=== PATIENT | male | born 1970 | race Caucasian/White ===

== ENCOUNTER 2018-03-14 18:14 | Emergency (ER) | payer BC ==
--- NOTE | 2018-03-14 19:59 | EDM.PDOC ---
ED HPI GENERAL MEDICAL PROBLEM - General Chief Complaint: Lower Extremity Injury/Pain Stated Complaint: LEFT KNEE INJURY Time Seen by Provider: 03/14/18 19:10 Source of Information: Reports: Patient History Limitations: Reports: No Limitations - History of Present Illness INITIAL COMMENTS - FREE TEXT/NARRATIVE: Several days ago this man was running a water obstacle course when he fell off an inflatable beam into the water. When his foot slipped it seemed leke his left lower leg bent outward (abducted) although he didn't see it. He just felt it. Left Knee Pain Score (Numeric/FACES): 3 - Related Data Allergies Allergy/AdvReac Type Severity Reaction Status Date / Time No Known Allergies Allergy Verified 03/14/18 18:30 Home Meds: Home Meds Hydrocodone/Acetaminophen [Hydrocodon-Acetaminophn 10-325] 1 - 2 tab PO ASDIRECTED PRN 03/14/18 [History] oxyCODONE 5 mg PO ASDIRECTED PRN 03/14/18 [History] Past Medical History HEENT History: Reports: Impaired Vision Cardiovascular History: Reports: Arrhythmia, Heart Murmur Genitourinary History: Reports: Renal Calculus Musculoskeletal History: Reports: Fracture Endocrine/Metabolic History: Reports: Obesity/BMI 30+ - Past Surgical History Male Surgical History: Reports: Kidney Stone Extraction Musculoskeletal Surgical History: Reports: Arthroscopic Knee Social & Family History - Tobacco Use Smoking Status *Q: Current Every Day Smoker Years of Tobacco use: 30 Packs/Tins Daily: 0.2 - Caffeine Use Caffeine Use: Reports: Soda - Recreational Drug Use Recreational Drug Use: No Review of Systems - Review of Systems Review Of Systems: ROS reveals no pertinent complaints other than HPI. ED EXAM, GENERAL - Physical Exam Exam: See Below Exam Limited By: No Limitations General Appearance: Alert, WD/WN, No Apparent Distress Extremities: Other (left knee tender just medial to patella at joint line. Stable joint though painful when ligament put in tension.Some decreased ROM. Able to bear weight.) Course - Vital Signs Last Recorded V/S: Last Vital Signs Temp 37.3 C 03/14/18 18:35 Pulse 110 H 03/14/18 18:35 Resp 16 03/14/18 18:35 BP 149/106 H 03/14/18 18:35 Pulse Ox 95 03/14/18 18:35 - Re-Assessments/Exams Free Text/Narrative Re-Assessment/Exam: 03/14/18 20:16 I explained that it is probably just and MCL sprain and should heal with conservative treatment. Doubt meniscal tear although that would require an MRI. May not even need any followup if heals rapidly. Departure - Departure Time of Disposition: 19:56 Disposition: Home, Self-Care 01 Condition: Fair Clinical Impression: Medial collateral ligament sprain of knee - Discharge Information Instructions: Medial Collateral Knee Ligament Sprain Referrals: PCP,None [Primary Care Provider] - Forms: ED Department Discharge Additional Instructions: You have a sprain or tear of the medial collateral ligaments of the knee. They are not completely torn. The knee appears stable. Use crutches but may bear weight as tolerated. You may need to use the crutches for uup to a month. This will probably heal without any further treatment but for problems, followup with your regular doctor.
== END 2018-03-14 20:27 | disposition home or self-care (01) ==
LOC: JP.ED 18:14
DX: S83.412A Sprain of medial collateral ligament of left knee, initial encounter (principal); Z79.899 Other long term (current) drug therapy; F17.210 Nicotine dependence, cigarettes, uncomplicated; V94.0XXA Hitting object or bottom of body of water due to fall from watercraft, initial encounter
CPT/HCPCS: 99283